=== PATIENT | female | born 1950 | race Two or more races ===

== ENCOUNTER 2019-05-30 08:11 | Outpatient (CLI) | payer OTHER | END 2019-05-30 08:15 | disposition home or self-care (01) | LOC: LAB 08:11 | DX: N30.00 Acute cystitis without hematuria (principal) ==

== ENCOUNTER 2022-09-13 07:14 | Outpatient (CLI) | payer OTHER | END 2022-09-13 07:22 | disposition home or self-care (01) | LOC: RAD 07:14 | DX: R19.5 Other fecal abnormalities (principal) ==